=== PATIENT | female | born 1970 | race Caucasian/White ===

== ENCOUNTER 2017-06-03 07:56 | Emergency (ER) | payer MEDICAID, OTHER ==
[~2017-06-03] VITALS: Ht 170.2 cm; Wt 90.7 kg
--- NOTE | 2017-06-03 08:10 | NUR ---
SEEN BY MD FOR EVAL. SAFETY AND COMFORT MEASURES PROVIDED. VSS. WILL MONITOR.
--- NOTE | 2017-06-03 08:15 | NUR ---
CARE CONSULTANT AT FOR BLOOD DRAW.
[2017-06-03 08:26] LABS: BASOPHILS % (AUTO) 0.3 % (0.0-2.0); EOSINOPHILS # (AUTO) 0.3 /CMM (0.0-0.7); HEMATOCRIT 31 % (33-45); HEMOGLOBIN 10.1 g/dL (11.5-14.8); LYMPHOCYTES # (AUTO) 1.7 /CMM (0.8-4.8); LYMPHOCYTES % (AUTO) 24.5 % (20.0-44.0); MEAN CORPUSCULAR HEMOGLOBIN 25 PG (26.0-33.0); MEAN CORPUSCULAR HGB CONC 33 g/dl (31.0-36.0); MEAN CORPUSCULAR VOLUME 75 fL (82-100); MONOCYTES # (AUTO) 0.5 /CMM (0.1-1.30); MONOCYTES % (AUTO) 7.5 % (2.0-12.0); NEUTROPHILS # (AUTO) 4.2 /CMM (1.8-8.9); NEUTROPHILS % (AUTO) 62.7 % (43.0-81.0); PLATELET COUNT (AUTO) 278 /CMM (150-450); RDW COEFFICIENT OF VARIATION 14.8 (11.5-15.0); RED BLOOD CELL COUNT(AUTO) 4.12 MIL/uL (4.0-5.2); WHITE BLOOD COUNT (AUTO) 6.8 K/uL (4.3-11.0)
[2017-06-03 08:45] LABS: ALBUMIN 3.3 g/dL (3.4-5.0); BILIRUBIN,DIRECT 0.1 mg/dL (0.0-0.2); BILIRUBIN,TOTAL 0.4 mg/dL (0.2-1.0); CALCIUM, SERUM 8.5 mg/dL (8.5-10.1); CREATININE 1.1 mg/dL (0.6-1.3); POTASSIUM 3.6 mmol/L (3.5-5.1); TOTAL PROTEIN, SERUM 7.1 g/dL (6.4-8.2)
[2017-06-03 09:13] LABS: THYROID STIMULATING HORMONE 2.482 uIU/mL (0.358-3.74)
--- NOTE | 2017-06-03 09:59 | NUR ---
PT. VERBALIZED UNDERSTANDING OF AFTERCARE INSTRUCTIONS.Patient discharged to home in stable condition. Written and verbal after care instructions given. Patient verbalizes understanding of instruction. Pt advised to follow up with primary doctor.
[2017-06-03 10:00] VITALS: BP 140/78
== END 2017-06-03 10:01 | disposition home or self-care (01) ==
LOC: ER 07:59
DX: R60.0 Localized edema (principal); E88.09 Other disorders of plasma-protein metabolism, not elsewhere classified; F41.9 Anxiety disorder, unspecified; J45.909 Unspecified asthma, uncomplicated
CPT/HCPCS: 36415; 80048-TC; 80076-TC; 83880; 84443-TC; 85025-TC; A4606; Z7610

== ENCOUNTER 2018-04-30 06:16 | Emergency (ER) | payer OTHER ==
[~2018-04-30] VITALS: Ht 170.2 cm; Wt 88.5 kg
--- NOTE | 2018-04-30 06:21 | NUR ---
CALLED PT IN [place], NO RESPONSE
--- NOTE | 2018-04-30 06:46 | NUR ---
BB SELF, AMBULATORY TO ER BED 16. PT STATES "VAGINAL BLEEDING WITH PAIN X 2 DAYS" ALSO STATES RECENTLY D/C FROM [facility]. PT AOX3 RR EVEN AND UNLABORED. NO SOB NOTED. NAD NOTED. NO NVD AT THIS TIME. PT GOWNED AND PLACED ON MONITOR WAITING FOR MD [place].
--- NOTE | 2018-04-30 07:02 | NUR ---
REPORT GIVEN TO COOKIE LEE FOR MALIKA.
[2018-04-30] MEDS ORDERED: KETOROLAC TROMETHAMINE INJ 30 MG/ML VIAL IM ONE (07:30)
[2018-04-30] MEDS ORDERED: MEDROXYPROGESTERONE 10 MG TAB (07:39)
[2018-04-30] MEDS ORDERED: HYDROCODONE-ACETAMIN 10-325 MG (07:39)
[2018-04-30] MEDS ORDERED: ALPRAZOLAM 2 MG TABLET (07:39)
[2018-04-30] MEDS ORDERED: DEXTROAMP AMPHETAMIN (07:39)
--- NOTE | 2018-04-30 07:51 | NUR ---
PT. VERBALIZED UNDERSTANDING OF AFTERCARE INSTRUCTIONS.Patient discharged to home in stable condition. Written and verbal after care instructions given. Patient verbalizes understanding of instruction.
[2018-04-30 07:53] VITALS: BP 131/77
== END 2018-04-30 07:54 | disposition home or self-care (01) ==
LOC: ER 06:20
DX: D25.9 Leiomyoma of uterus, unspecified (principal); Z98.890 Other specified postprocedural states; J45.909 Unspecified asthma, uncomplicated
CPT/HCPCS: 99282; A4606; Z7610

== ENCOUNTER 2025-08-20 18:39 | Emergency (ER) | payer MEDICAID, OTHER ==
[~2025-08-20] VITALS: Ht 170.2 cm; Wt 104.3 kg
[~2025-08-20 18:39] MED LIST: ALPRAZOLAM 2 MG TABLET; DEXTROAMP AMPHETAMIN; HYDROCODONE-ACETAMIN 10-325 MG; MEDROXYPROGESTERONE 10 MG TAB
[2025-08-20 19:09] VITALS: BP 162/100; TEMP 98; O2SAT 96
[2025-08-20] MEDS ORDERED: AMOX500C2 PO (19:33)
[2025-08-20] MEDS ORDERED: IBUP-1953 PO (19:33)
== END 2025-08-20 19:55 | disposition home or self-care (01) ==
LOC: ER 18:43
DX: J32.9 Chronic sinusitis, unspecified (principal); J45.909 Unspecified asthma, uncomplicated; I10 Essential (primary) hypertension; F41.9 Anxiety disorder, unspecified; Z79.3 Long term (current) use of hormonal contraceptives